=== PATIENT | male | born 1995 | race Caucasian/White ===

== ENCOUNTER 2018-03-20 22:02 | Emergency (ER) | payer OTHER ==
[2018-03-20 22:08] VITALS: BP 147/89; PULSE 95; RESP 16; TEMP 98.6
[2018-03-20 22:25] LABS: Glucose,Whole Blood 125 mg/dL (75-99)
--- NOTE | 2018-03-21 01:06 | ED ---
Seizure HPI - General Chief Complaint: Seizure Stated Complaint: Seizure last night Time Seen by Provider: 03/20/18 22:09 Source: patient Mode of arrival: ambulatory Limitations: no limitations - History of Present Illness Initial Comments: 22-year-old male patient presented to the emergency department today for possible seizure. 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 States he believes he may be dehydrated. Patient would not allow completion of history and physical exam because he wanted to be discharged so he could smoke. Stated he was feeling better. - Related Data Home Medications Medication Instructions Recorded Confirmed No Known Home Medications [No 05/03/15 03/20/18 Known Home Medications] Allergies Allergy/AdvReac Type Severity Reaction Status Date / Time No Known Allergies Allergy Verified 03/20/18 22:17 Review of Systems ROS Statement: Those systems with pertinent positive or pertinent negative responses have been documented in the HPI. ROS Other: All systems not noted in ROS Statement are negative. Past Medical History Past Medical History: No Reported History History of Any Multi-Drug Resistant Organisms: None Reported Past Surgical History: No Surgical Hx Reported Past Psychological History: ADD/ADHD, Bipolar, Depression, Schizophrenia Smoking Status: Current every day smoker Past Alcohol Use History: None Reported Past Drug Use History: None Reported General Exam Limitations: no limitations General appearance: alert, in no apparent distress, other (A well-developed, well-nourished adult male patient in no acute distress. Vital signs upon presentation are temperature 98.6F, pulse 95, respirations 16, blood pressure 147/89, pulse ox 99% on room air.) Skin exam: Present: warm, dry, intact, normal color. Absent: rash Course Vital Signs 03/20/18 22:04 Temperature 98.6 F Pulse Rate 95 Respiratory 16 Rate Blood Pressure 147/89 O2 Sat by Pulse 99 Oximetry Medical Decision Making - Medical Decision Making 22-year-old male patient presented to the emergency department today for possible seizure. Upon my entrance to the room patient is requesting to go home. He would not allow completion of physical examination or completion of history. Patient was alert and oriented ambulating without difficulty. I did explain that we would like to perform lab tests, he refused stating that he wanted to be discharged. I discussed the risks of being discharged including worsening of his symptoms, permanent disability, and , he verbalize understanding and stated "I think I am fine, my mom wanted me to come here". He did sign AGAINST MEDICAL ADVICE form. He is instructed to follow-up with his doctor as soon as possible. 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
== END 2018-03-20 23:12 | disposition left against medical advice (07) ==
LOC: EC 22:02
DX: R56.9 Unspecified convulsions (principal); F17.200 Nicotine dependence, unspecified, uncomplicated
CPT/HCPCS: 36415; 99284

== ENCOUNTER 2021-03-23 21:51 | Emergency (ER) | payer OTHER ==
[2021-03-23 21:59] VITALS: BP 172/83; PULSE 93; RESP 16; TEMP 98.4
[2021-03-23] MEDS ORDERED: ACET/COD 300 MG/30 MG STARTER PACK 6 TAB BTL PO STA (22:14)
--- NOTE | 2021-03-23 22:14 | ED ---
ENT HPI - General Chief complaint: Dental/Oral Stated complaint: Oral pain Time Seen by Provider: 03/23/21 21:59 Source: patient, RN notes reviewed Mode of arrival: ambulatory Limitations: no limitations - History of Present Illness Initial comments: 25-year-old well-appearing white male, alert and oriented 4, presents to the emergency room with 2 days of upper right dental pain. Patient states that it is only painful when he is eating or pushing it with his tongue. Patient has a history of poor dental hygiene. Patient is a 2 pack a day smoker denies any other medical history. Patient has been afebrile and denies any nausea vomiting or diarrhea. MD complaint: tooth pain -: days(s) (2) Location: tooth # (2) Severity scale (1-10): 0 (Pain only with palpation or eating) Quality: aching Consistency: intermittent Improves with: none Worsens with: eating, movement Context-Epistaxis: history of similar Context- Dental: history of dental caries, poor dental care - Related Data Previous Rx's Medication Instructions Recorded Penicillin V Potassium [Pen Vee K] 500 mg PO QID #40 tablet 03/23/21 Allergies Allergy/AdvReac Type Severity Reaction Status Date / Time No Known Allergies Allergy Verified 03/23/21 21:56 Review of Systems ROS Statement: Those systems with pertinent positive or pertinent negative responses have been documented in the HPI. ROS Other: All systems not noted in ROS Statement are negative. Past Medical History Past Medical History: No Reported History History of Any Multi-Drug Resistant Organisms: None Reported Past Surgical History: No Surgical Hx Reported Past Psychological History: ADD/ADHD, Bipolar, Depression, Schizophrenia Smoking Status: Current every day smoker Past Alcohol Use History: None Reported Past Drug Use History: None Reported General Exam Limitations: no limitations General appearance: alert, in no apparent distress Head exam: Present: atraumatic, normocephalic, normal inspection Eye exam: Present: normal appearance, PERRL, EOMI. Absent: scleral icterus, conjunctival injection, periorbital swelling ENT exam: Present: normal exam, mucous membranes moist, other (Fracture of tooth #2 right upper molar with gingival abscess buccal side) Neck exam: Present: normal inspection, full ROM. Absent: tenderness, meningismus, lymphadenopathy Respiratory exam: Present: normal lung sounds bilaterally. Absent: respiratory distress, wheezes, rales, rhonchi, stridor, chest wall tenderness, accessory muscle use, decreased breath sounds Cardiovascular Exam: Present: regular rate, normal rhythm, normal heart sounds. Absent: systolic murmur, diastolic murmur, rubs, gallop, clicks GI/Abdominal exam: Present: soft, normal bowel sounds. Absent: distended, tende rness, guarding, rebound, rigid Neurological exam: Present: alert, oriented X3, CN II-XII intact Psychiatric exam: Present: normal affect, normal mood Skin exam: Present: warm, dry, intact, normal color. Absent: rash Course Vital Signs 03/23/21 21:57 Temperature 98.4 F Pulse Rate 93 Respiratory 16 Rate Blood Pressure 172/83 O2 Sat by Pulse 100 Oximetry Medical Decision Making - Medical Decision Making Patient is afebrile presents to the emergency room for fractured tooth #2 with a 3mm gingival abscess on the buccal side. Patient states pain only with eating on that side or with palpation with his tongue across the broken fragment. Patient denies headache or eye pain. He is tolerating oral fluids. Patient is well-appearing. Will be treated with penicillin and directed to follow up with the dentist this week. Case discussed with Dr. Farah. Disposition Clinical Impression: Tooth fracture, Dental abscess Disposition: HOME SELF-CARE Condition: Good Instructions (If sedation given, give patient instructions): Dental Abscess (ED), Toothache (ED) Additional Instructions: Take medication as prescribed and follow up with a dentist as soon as possible. Return to the emergency room if worsening symptoms or signs of infection including fever, severe headache or inability to keep fluids down Prescriptions: Penicillin V Potassium [Pen Vee K] 500 mg PO QID #40 tablet Is patient prescribed a controlled substance at d/c from ED?: No Referrals: Adal Bennett MD [Primary Care Provider] - 1-2 days Time of Disposition: 22:13
== END 2021-03-23 22:26 | disposition home or self-care (01) ==
LOC: EC 21:51
DX: S02.5XXA Fracture of tooth (traumatic), initial encounter for closed fracture (principal); K04.7 Periapical abscess without sinus; K05.319 Chronic periodontitis, localized, unspecified severity; R04.0 Epistaxis; F31.9 Bipolar disorder, unspecified; F41.9 Anxiety disorder, unspecified; F20.9 Schizophrenia, unspecified; F17.210 Nicotine dependence, cigarettes, uncomplicated; X58.XXXA Exposure to other specified factors, initial encounter
CPT/HCPCS: 99282

== ENCOUNTER 2021-05-14 14:56 | Emergency (ER) | payer OTHER ==
[2021-05-14 15:03] VITALS: BP 138/89; PULSE 99; RESP 20; TEMP 99.9
--- NOTE | 2021-05-14 15:40 | ED ---
URI HPI - General Chief Complaint: Upper Respiratory Infection Stated Complaint: Chest pain Time Seen by Provider: 05/14/21 15:03 Source: patient, RN notes reviewed Mode of arrival: wheelchair Limitations: no limitations - History of Present Illness Initial Comments: This a 25-year-old male presents emergency Department chief complaint cough congestion bodyaches fever. Patient states symptoms started last 24 hours. No sick contacts. Patient states he has not had COVID-19. No pleuritic chest pain no resting shortness of breath. - Related Data Previous Rx's Medication Instructions Recorded Penicillin V Potassium [Pen Vee K] 500 mg PO QID #40 tablet 03/23/21 Azithromycin [Zithromax Z-pack (6 0 mg PO DIRECTED #1 pack 05/14/21 tabs)] Allergies Allergy/AdvReac Type Severity Reaction Status Date / Time No Known Allergies Allergy Verified 05/14/21 15:02 Review of Systems ROS Statement: Those systems with pertinent positive or pertinent negative responses have been documented in the HPI. ROS Other: All systems not noted in ROS Statement are negative. Past Medical History Past Medical History: No Reported History History of Any Multi-Drug Resistant Organisms: None Reported Past Surgical History: No Surgical Hx Reported Past Psychological History: ADD/ADHD, Bipolar, Depression, Schizophrenia Smoking Status: Current every day smoker Past Alcohol Use History: None Reported Past Drug Use History: None Reported General Exam Limitations: no limitations General appearance: alert, in no apparent distress Head exam: Present: atraumatic, normocephalic, normal inspection Eye exam: Present: normal appearance, PERRL, EOMI. Absent: scleral icterus, conjunctival injection, periorbital swelling ENT exam: Present: normal exam, normal oropharynx, mucous membranes moist Neck exam: Present: normal inspection, full ROM. Absent: tenderness, meningismus, lymphadenopathy Respiratory exam: Present: normal lung sounds bilaterally. Absent: respiratory distress, wheezes, rales, rhonchi, stridor Cardiovascular Exam: Present: regular rate, normal rhythm, normal heart sounds. Absent: systolic murmur, diastolic murmur, rubs, gallop, clicks Neurological exam: Present: alert Skin exam: Present: warm, dry, intact, normal color. Absent: rash Course Vital Signs 05/14/21 14:58 Temperature 99.9 F H Pulse Rate 99 Respiratory 20 Rate Blood Pressure 138/89 O2 Sat by Pulse 96 Oximetry Medical Decision Making - Medical Decision Making Patient's COVID-19 is negative. Patient we would azithromycin. Just infection return parameters were discussed. - Lab Data Lab Results 05/14/21 Range/Units 15:13 Coronavirus (PCR) Not Detected (Not Detectd) Disposition Clinical Impression: Acute upper respiratory infection Disposition: HOME SELF-CARE Condition: Stable Instructions (If sedation given, give patient instructions): Upper Respiratory Infection (ED) Additional Instructions: Please return to the Emergency Department if symptoms worsen or any other concerns. Prescriptions: Azithromycin [Zithromax Z-pack (6 tabs)] 0 mg PO DIRECTED #1 pack Is patient prescribed a controlled substance at d/c from ED?: No Referrals: Adal Bennett MD [Primary Care Provider] - 1-2 days
== END 2021-05-14 16:36 | disposition home or self-care (01) ==
LOC: EC 14:56
DX: J06.9 Acute upper respiratory infection, unspecified (principal); F90.9 Attention-deficit hyperactivity disorder, unspecified type; F31.9 Bipolar disorder, unspecified; F20.9 Schizophrenia, unspecified; F17.200 Nicotine dependence, unspecified, uncomplicated; Z20.822 Contact with and (suspected) exposure to COVID-19
CPT/HCPCS: 87635; 93005; 99283

== ENCOUNTER 2021-06-22 22:17 | Emergency (ER) | payer OTHER ==
[2021-06-22 22:40] VITALS: BP 127/91; PULSE 99; RESP 20; TEMP 98.5
--- NOTE | 2021-06-22 23:31 | XR ---
EXAMINATION TYPE: XR elbow complete LT DATE OF EXAM: 06/22/2021 COMPARISON: NONE HISTORY: Pain and redness and swelling TECHNIQUE: 3 views FINDINGS: I see no fracture nor dislocation. Joint spaces are normal. There is no sign of elbow joint effusion. There is soft tissue swelling over the proximal posterior ulna. IMPRESSION: Soft tissue swelling. No fracture.
--- NOTE | 2021-06-22 23:37 | ED ---
Upper Extremity HPI - General Chief Complaint: Extremity Injury, Upper Stated Complaint: L Elbow swelling Time Seen by Provider: 06/22/21 22:49 Source: patient Mode of arrival: ambulatory Limitations: no limitations - History of Present Illness Initial Comments: 25-year-old male presents to emergency with a chief complaint of left elbow swelling and redness. He states this occurred about 10 days and has been gradually increasing in severity. Reports most of the swelling is located along the lateral aspect of the left elbow but he otherwise has full range of motion in the elbow. Denies any paresthesias or weakness distally to the symptomatic region. He denies any injuries to the elbow. He denies any fevers or chills. Denies any discharge from the erythematous region - Related Data Home Medications Medication Instructions Recorded Confirmed Dextroamphetamine/Amphetamine 20 mg PO BID 05/14/21 05/14/21 [Adderall] Ergocalciferol (Vitamin D2) 1,250 mcg PO Q30D 05/14/21 05/14/21 [Drisdol (50,000 Iu)] Ibuprofen [Motrin] 800 mg PO QID PRN 05/14/21 05/14/21 busPIRone HCL 15 mg PO TID PRN 05/14/21 05/14/21 Previous Rx's Medication Instructions Recorded Azithromycin [Zithromax Z-pack (6 0 mg PO DIRECTED #1 pack 05/14/21 tabs)] Cephalexin [Keflex] 500 mg PO Q6HR #40 cap 06/22/21 Allergies Allergy/AdvReac Type Severity Reaction Status Date / Time No Known Allergies Allergy Verified 06/22/21 22:40 Review of Systems ROS Statement: Those systems with pertinent positive or pertinent negative responses have been documented in the HPI. ROS Other: All systems not noted in ROS Statement are negative. Past Medical History Past Medical History: No Reported History History of Any Multi-Drug Resistant Organisms: None Reported Past Surgical History: No Surgical Hx Reported Past Psychological History: ADD/ADHD, Bipolar, Depression, Schizophrenia Smoking Status: Current every day smoker Past Alcohol Use History: None Reported Past Drug Use History: None Reported General Exam Limitations: no limitations General appearance: alert, in no apparent distress Head exam: Present: atraumatic, normocephalic, normal inspection Eye exam: Present: normal appearance, PERRL, EOMI Pupils: Present: normal accommodation ENT exam: Present: normal exam, normal oropharynx, mucous membranes moist Neck exam: Present: normal inspection, full ROM. Absent: tenderness, lymphadenopathy Respiratory exam: Present: normal lung sounds bilaterally. Absent: respiratory distress Cardiovascular Exam: Present: regular rate, normal rhythm, normal heart sounds Extremities exam: Present: normal inspection (Erythematous region and swelling on the lateral aspect of left elbow.), full ROM (Full range of motion elbow), tenderness (Tenderness over the region of swelling), normal capillary refill, other (Palpable ulnar and radial pulses in the left arm. Sensation intact in the left arm). Absent: pedal edema, joint swelling, calf tenderness Back exam: Present: normal inspection, full ROM. Absent: tenderness Neurological exam: Present: alert, oriented X3 Psychiatric exam: Present: normal affect, normal mood Skin exam: Present: warm, dry, intact, normal color Course Vital Signs 06/22/21 22:38 Temperature 98.5 F Pulse Rate 99 Respiratory 20 Rate Blood Pressure 127/91 O2 Sat by Pulse 98 Oximetry Medical Decision Making - Medical Decision Making 25-year-old male presents to the emergency department with a chief complaint of left elbow swelling. Physical examination have lower suspicion that this is bursitis at this time. I do suspect more of cellulitis at the moment. I have low suspicion for septic elbow at this time. He is otherwise neurovascularly intact in the arm. X-ray of the elbow just shows soft tissue swelling. I will treat the patient for cellulitis. However there may be a possibility for bursitis. I advised the patient to follow-up with an desktop publishing specialist if the symptoms do not improve over the next couple days with the antibiotic. Return parameters were thoroughly discussed with patient was understanding and agreeable. Disposition Clinical Impression: Cellulitis Disposition: HOME SELF-CARE Condition: Stable Instructions (If sedation given, give patient instructions): Elbow Bursitis (ED) Additional Instructions: Take prescribed medication as directed. Follow-up with an desktop publishing specialist. Return to emergency department if symptoms worsen. Prescriptions: Cephalexin [Keflex] 500 mg PO Q6HR #40 cap Is patient prescribed a controlled substance at d/c from ED?: No Referrals: Adal Bennett MD [Primary Care Provider] - 1-2 days Jono Duvall MD [STAFF PHYSICIAN] - 1-2 days Time of Disposition: 23:37
[2021-06-22] MEDS ORDERED: CEPHALEXIN 500 MG CAP PO STA (23:45)
== END 2021-06-22 23:52 | disposition home or self-care (01) ==
LOC: EC 22:17
DX: L03.114 Cellulitis of left upper limb (principal); F90.9 Attention-deficit hyperactivity disorder, unspecified type; F31.9 Bipolar disorder, unspecified; F20.9 Schizophrenia, unspecified; F17.200 Nicotine dependence, unspecified, uncomplicated
CPT/HCPCS: 99283